=== PATIENT | female | born 1965 | race Caucasian/White ===

== ENCOUNTER → 2017-04-17 | Outpatient (CLI) | payer OTHER ==
[~2017-04-17] MED LIST: ADAP45CR7 TP; CALC-854 PO; CLIN45GE TP; LORA-629 PO; MINOCYCLINE; MULT-1372 PO; PRENATAL VITAMIN; PROG100C PO; SPIR100T31 PO
--- NOTE | 2017-04-17 17:19 | RADIOLOGY IMAGING REPORT ---
FACILITY: [facility] PATIENT NAME: LARA OLSON : [id number] MR: [id number] V: [id number] EXAM DATE: [id number] ORDERING PHYSICIAN: FORTINO URIARTE TECHNOLOGIST: Rosalinda Thrasher PROCEDURE:BILATERAL DIGITAL SCREENING MAMMOGRAM WITH CAD ASSISTED INTERPRETATION & 3D TOMOSYNTHESIS COMPARISON:Prior mammograms 01/06/16, 12/29/15, 12/26/14, 12/18/13, 12/12/12 INDICATIONS:SCREENING FINDINGS: Extremely dense heterogeneous fibroglandular tissue is seen throughout the breasts. The parenchymal pattern has remained stable allowing for difference in mammographic technique & patient positioning. There is no evidence of malignant appearing mass, malignant appearing calcifications or other secondary sign of malignancy in either breast. DIAGNOSTIC CATEGORY 2--BENIGN FINDING. RECOMMENDATIONS: ROUTINE MAMMOGRAM AND CLINICAL EVALUATION. IMPRESSION: BIRADS 2: Benign finding No significant abnormality is seen Dictated by: Shelby Santiago M.D. on 04/17/2017 at 15:59 Transcribed by: PARAS on 04/17/2017 at 16:09 Approved by: Shelby Santiago M.D. on 04/17/2017 at 17:17 [facility]
== END ==
LOC: MAMO 00:51
PROVIDERS: ATTEND Obstetrics & Gynecology
DX: Z12.31 Encounter for screening mammogram for malignant neoplasm of breast (principal)
CPT/HCPCS: 77063; 77067

== ENCOUNTER → 2018-04-18 | Outpatient (CLI) | payer OTHER ==
[~2018-04-18] MED LIST changes: -SPIR100T31 PO; +SPIR100T33 PO
--- NOTE | 2018-04-18 17:08 | RADIOLOGY IMAGING REPORT ---
FACILITY: [facility] [place] PATIENT NAME: LARA OLSON : [id number] MR: [id number] V: [id number] EXAM DATE: [id number] ORDERING PHYSICIAN: FORTINO URIARTE TECHNOLOGIST: Izabel Ratliff PROCEDURE:BILATERAL DIGITAL SCREENING MAMMOGRAM WITH CAD ASSISTED INTERPRETATION & 3D TOMOSYNTHESIS COMPARISON:Prior mammograms 04/17/17, 01/06/16, 12/29/15, 12/26/14, 12/18/13. INDICATIONS:SCREENING FINDINGS: The breasts are extremely dense which lowers the sensivity of mammography. The parenchymal pattern has remained stable allowing for difference in mammographic technique & patient positioning. DIAGNOSTIC CATEGORY 1--NEGATIVE. RECOMMENDATIONS: ROUTINE MAMMOGRAM AND CLINICAL EVALUATION. IMPRESSION: BIRADS 1: Negative. No significant abnormality is seen. Dictated by: Shelby Santiago M.D. on 04/18/2018 at 9:29 Transcribed by: PARAS on 04/18/2018 at 9:52 Approved by: Shelby Santiago M.D. on 04/18/2018 at 17:06 [facility]
== END ==
LOC: MAMO 00:50
PROVIDERS: ATTEND Obstetrics & Gynecology
DX: Z12.31 Encounter for screening mammogram for malignant neoplasm of breast (principal)
CPT/HCPCS: 77063; 77067